=== PATIENT | female | born 1960 | race Caucasian/White ===

== ENCOUNTER → 2016-12-11 | Outpatient (CLI) | payer BC ==
--- NOTE | 2016-12-11 17:35 | RADRPT ---
PROCEDURE: XR Pelvis and Hips. CLINICAL INDICATION: Pelvic pain. Bilateral hip pain. TECHNIQUE: Five views. Frontal pelvis. Frontal and lateral right hip. Frontal and lateral left hip. COMPARISON: No prior studies are available for comparison. 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 There is no fracture, dislocation, or loosening. There is a left hip total arthroplasty with fracture of the medial aspect of the acetabulum, age ind eterminate. There are fractured screws and loosening of a inferior screw in the acetabular componen t. There is no other fracture and there is no dislocation. There is no lytic or blastic lesion. IMPRESSION: 1. Satisfactory postoperative appearance of the right hip. 2. Fracture of the medial wall of the left acetabulum, fracture left acetabular screws, and looseni ng of the inferior screw in the acetabular component of the left hip. RPTAT: QQ .Ladarius Mauro MD, Date Time Electronically viewed and signed by .Ladarius Mauro MD, on 12/11/2016 17:34 .R/
== END | disposition home or self-care (01) ==
LOC: HKI 10:04
PROVIDERS: ATTEND Orthopaedic Surgery
DX: M25.552 Pain in left hip (principal); T84.031A Mechanical loosening of internal left hip prosthetic joint, initial encounter; T84.051A Periprosthetic osteolysis of internal prosthetic left hip joint, initial encounter; T84.050A Periprosthetic osteolysis of internal prosthetic right hip joint, initial encounter; T84.84XA Pain due to internal orthopedic prosthetic devices, implants and grafts, initial encounter; T84.061A Wear of articular bearing surface of internal prosthetic left hip joint, initial encounter; T84.060A Wear of articular bearing surface of internal prosthetic right hip joint, initial encounter; Z96.643 Presence of artificial hip joint, bilateral; Z96.653 Presence of artificial knee joint, bilateral
CPT/HCPCS: 73523; G0463